=== PATIENT | male | born 1985 | race Hispanic/Latino ===

== ENCOUNTER 2018-05-31 08:21 | Emergency (ER) | payer OTHER ==
[~2018-05-31] VITALS: Ht 170.2 cm; Wt 81.7 kg
[~2018-05-31 08:21] MED LIST: IBUPROFEN200 M1 PO
[2018-05-31] MEDS ORDERED: KETOROLAC TROME10 MG PO (08:38)
[2018-05-31] MEDS ORDERED: BACLOFEN10 MG PO (08:40)
== END 2018-05-31 08:44 | disposition home or self-care (01) ==
LOC: ED 08:21
DX: M99.08 Segmental and somatic dysfunction of rib cage (principal); Z87.891 Personal history of nicotine dependence
CPT/HCPCS: 99283